=== PATIENT | female | born 1955 | race Caucasian/White ===

== ENCOUNTER 2016-11-06 23:13 | Emergency (ER) | payer MEDICAID ==
[~2016-11-06] VITALS: Ht 165.1 cm; Wt 98.4 kg
[~2016-11-06 23:13] MED LIST: DEXL60CA3 PO; LEVO500T20 PO; LISI40TA4 PO; PRED20TA PO; TRAM50TA92 PO
[2016-11-06 23:39] VITALS: BP 156/109; PULSE 63; RESP 18; TEMP 98.3; O2SAT 97
--- NOTE | 2016-11-06 23:46 | NUR ---
Pt triaged, pt on stable condition, VS WNL
--- NOTE | 2016-11-07 00:48 | NUR ---
Placed in room 07 . Placed on hall monitor, blood pressure machine and pulse oximeter. To gown for exam. Side rails up. Report given to LORNA Medrano.
[2016-11-07] MEDS ORDERED: KETOROLAC TROMETHAMINE 60 MG/2 ML VIAL IM ONE (01:45)
[2016-11-07 02:20] VITALS: BP 143/97; PULSE 66; RESP 16; TEMP 98.3; O2SAT 98
--- NOTE | 2016-11-07 02:20 | NUR ---
Patient given written and verbal discharge instructions and verbalizes understanding. ER MD Agarwal discussed with patient the results and treatment provided. Patient in stable condition. ID arm band removed. Rx of prednisone, erythromycin,atarax given. Patient educated on pain management and to follow up with PMD. Pain Scale 0/10. Opportunity for questions provided and answered.
== END 2016-11-07 02:20 | disposition home or self-care (01) ==
LOC: SED 23:13
DX: L03.113 Cellulitis of right upper limb (principal); R21 Rash and other nonspecific skin eruption; J45.909 Unspecified asthma, uncomplicated; I10 Essential (primary) hypertension; Z88.0 Allergy status to penicillin; Z88.2 Allergy status to sulfonamides; Z88.5 Allergy status to narcotic agent
CPT/HCPCS: 96372; 99283; J1885

== ENCOUNTER 2016-11-13 13:16 | Emergency (ER) | payer MEDICAID ==
[~2016-11-13] VITALS: Ht 165.1 cm; Wt 98.4 kg
[2016-11-13 13:16] VITALS: BP 161/94; PULSE 85; RESP 18; TEMP 98.3; O2SAT 97
--- NOTE | 2016-11-13 13:16 | NUR ---
Pt placed to ER bed 5. Pt c/o productive cough with yellow colored sputum and sore throat x 2 weeks. No SOB noted. Respirations even and non-labored.
--- NOTE | 2016-11-13 13:30 | NUR ---
Dr. Proctor at bedside to assess pt.
[2016-11-13] MEDS ORDERED: IPRATROPIUM/ALBUTEROL SULFATE 3 ML AMPUL.NEB INH ONE (13:45)
[2016-11-13] MEDS ORDERED: DEXAMETHASONE SOD PHOSPHATE 10 MG/ML VIAL IM ONE (13:45)
[2016-11-13] MEDS ORDERED: KETOROLAC TROMETHAMINE 60 MG/2 ML VIAL IM ONE (13:45)
[2016-11-13 15:10] VITALS: BP 155/90; PULSE 77; RESP 18; TEMP 97.3; O2SAT 95
--- NOTE | 2016-11-13 15:10 | NUR ---
Patient given written and verbal discharge instructions and verbalizes understanding. ER MD discussed with patient the results and treatment provided. Patient in stable condition. ID arm band removed. Rx of Doxycycline and Tessalon Perles given. Patient educated on pain management and to follow up with PMD. Pain Scale 0/10. Opportunity for questions provided and answered.
== END 2016-11-13 15:10 | disposition home or self-care (01) ==
LOC: SED 13:16
DX: J20.9 Acute bronchitis, unspecified (principal); J45.909 Unspecified asthma, uncomplicated; I10 Essential (primary) hypertension; Z88.0 Allergy status to penicillin; Z88.2 Allergy status to sulfonamides; Z88.5 Allergy status to narcotic agent
CPT/HCPCS: 71020; 94640; 96372; 99284; J1100; J1885

== ENCOUNTER 2018-04-07 11:53 | Inpatient (IN) | payer MEDICAID ==
[~2018-04-07] VITALS: Ht 162.6 cm; Wt 96.6 kg
[~2018-04-07 11:53] MED LIST changes: -DEXL60CA3 PO; +DEXL60CA4 PO; -LEVO500T20 PO; -PRED20TA PO
[2018-04-07 12:17] VITALS: BP_SYST 121
--- NOTE | 2018-04-07 12:28 | NUR ---
Pt placed in bed 6
--- NOTE | 2018-04-07 12:28 | NUR ---
Pt c/o left sided abdominal pain with nausea since this AM. Pt with hx of abdominal hernias. Denies dysuria.
--- NOTE | 2018-04-07 12:35 | NUR ---
ER at bedside examining patient.
--- NOTE | 2018-04-07 13:02 | NUR ---
# 20 gauge angiocath placed to LFA. Use of asceptic technique. Opsite placed over site. Blood return noted. Blood for lab drawn from site. Flushed with 10 cc of normal saline. No evidence of infiltration noted. Patient tolerated well.
--- NOTE | 2018-04-07 13:07 | NUR ---
Pt to CT via stretcher.
--- NOTE | 2018-04-07 13:07 | NUR ---
Off unit for CT via [facility]
[2018-04-07 13:26] LABS: BILIRUBIN,URINE 1+ (NEGATIVE); BLOOD, URINE NEGATIVE (NEGATIVE); CLARITY/URINE CLEAR (CLEAR); COLOR,URINE YELLOW (YELLOW); GLUCOSE,URINE NEGATIVE (NEGATIVE); KETONES,URINE NEGATIVE (NEGATIVE); LEUKOCYTE ESTERASE ,URINE TRACE (NEGATIVE); NITRITE, URINE NEGATIVE (NEGATIVE); PROTEIN URINE NEGATIVE (NEGATIVE); UROBILINOGEN,URINE 0.2 (0.2-1.0)
[2018-04-07 13:27] LABS: BASOPHILS % (AUTO) 0.6 % (0.0-2.0); EOSINOPHILS # (AUTO) 0.1 K/uL (0.0-0.4); EOSINOPHILS % (AUTO) 0.9 % (0.0-4.0); HEMATOCRIT 38.3 % (36-48); HEMOGLOBIN 12.9 g/dL (12.0-16.0); LYMPHOCYTES # (AUTO) 2.3 K/uL (1.0-5.5); LYMPHOCYTES % (AUTO) 40.9 % (20.5-51.5); MEAN CORPUSCULAR HEMOGLOBIN 31 pg (27-31); MEAN CORPUSCULAR HGB CONC 34 % (32-36); MEAN CORPUSCULAR VOLUME 91 fL (79.0-98.0); MONOCYTES # (AUTO) 0.5 K/uL (0.0-1.0); MONOCYTES % (AUTO) 8.9 % (1.7-9.3); NEUTROPHILS # (AUTO) 2.8 K/uL (1.8-7.7); NEUTROPHILS % (AUTO) 48.7 % (40.0-70.0); PLATELET COUNT (AUTO) 182 K/uL (130-430); RED BLOOD CELL COUNT(AUTO) 4.21 MIL/uL (4.2-6.2); RED CELL DISTRIBUTION WIDTH 13.4 % (9.0-15.0); WHITE BLOOD COUNT (AUTO) 5.7 K/uL (4.8-10.8)
[2018-04-07 13:30] LABS: CALCIUM 9.2 mg/dL (8.4-11.0); CREATININE 0.69 mg/dL (0.55-1.30); POTASSIUM 3.6 mmol/L (3.5-5.1)
[2018-04-07] MEDS ORDERED: DIPHENHYDRAMINE INJ 50 MG/ML VIAL IVP ONE (13:30)
[2018-04-07 13:35] LABS: ALBUMIN 3.4 g/dL (3.4-4.8); TOTAL BILIRUBIN 0.4 mg/dL (0.0-1.0)
[2018-04-07] MEDS ORDERED: CLINDAMYCIN PHOSPHATE 900 mg/50mL D5W IV ONE (13:35)
[2018-04-07] MEDS ORDERED: BUPIVACAINE LIPOSOME/PF 266 MG/20 ML VIAL INFIL ONE (13:35)
[2018-04-07] MEDS ORDERED: KETOROLAC TROMETHAMINE 30 MG VIAL IVP ONE (13:35)
[2018-04-07] MEDS ORDERED: fentaNYL CITRATE/PF 100 MCG/2 ML AMP IVP ONE ×2 (13:35→15:45)
[2018-04-07] MEDS ORDERED: ROCURONIUM BROMIDE 10 MG/ML (ZEMURON) IV ONE (13:35)
[2018-04-07] MEDS ORDERED: NEOSTIGMINE METHYLSULFATE 1 MG/ML, 10 ML VIAL IVP ONE (13:35)
[2018-04-07] MEDS ORDERED: LR 1,000 ML IV.SOLN IV ONE (13:35)
[2018-04-07] MEDS ORDERED: SEVOFLURANE 15 MIN GAS INH ONE (13:35)
[2018-04-07] MEDS ORDERED: MIDAZOLAM HCL 5 MG/5 ML VIAL IVP ONE (13:35)
[2018-04-07] MEDS ORDERED: PROPOFOL 200MG/ 20ML VIAL (DIPRIVAN) IV ONE (13:35)
[2018-04-07] MEDS ORDERED: GLYCOPYRROLATE 0.2 MG/ML VIAL IJ ONE (13:35)
[2018-04-07 13:51] LABS: BACTERIA,URINE FEW /HPF (None Seen); MUCUS,URINE 1+ /LPF (None Seen); RBC,URINE 0-3 /HPF (0-3)
--- NOTE | 2018-04-07 14:00 | NUR ---
Pt resting with eyes closed. Family members at bedside.
[2018-04-07] MEDS ORDERED: HYDROmorphone 2 MG/ML VIAL IVP ONE (15:15)
--- NOTE | 2018-04-07 15:40 | NUR ---
Patient will be admitted to care of Dr. Summers. Admitted to Tele unit. Will go to room 133A. Belongings list completed. Summary report printed. Report will be given at bedside.
[2018-04-07] MEDS ORDERED: HYDROmorphone 2 MG/ML VIAL ONE (15:41)
--- NOTE | 2018-04-07 15:51 | NUR ---
Fentanyl 25 mcg given IVP prior to taking pt to Tele unit.
--- NOTE | 2018-04-07 15:59 | NUR ---
ADMISSION NOTE Received patient from ER via gurney. Patient admitted with diagnosis of acute abdomen. Patient is awake, alert, oriented X 4. Patient oriented to hospital room, call light, toileting, pain management and safety-teach back done. Patient informed that Linda will be her nurse and that their room number is 133a. Personal belongings checked and Belongings List documented. Call light within reach.
[2018-04-07 16:07] VITALS: BP_SYST 109
[2018-04-07] MEDS ORDERED: PRED10TA PO (16:40)
[2018-04-07] MEDS ORDERED: HCT25 PO (16:40)
[2018-04-07] MEDS ORDERED: LISI-600 PO (16:40)
[2018-04-07] MEDS: D5/0.45 NS 1,000 ML IV SCH (16:53)
[2018-04-07 17:00] VITALS: BP_SYST 109
[2018-04-07] MEDS ORDERED: HYDROmorphone 2 MG/ML VIAL IVP PRN (17:00)
[2018-04-07] MEDS ORDERED: LORazepam 2 MG/ML VIAL IVP PRN (17:00)
[2018-04-07] MEDS ORDERED: HYDROmorphone 1 MG INJ. 1 MG/ML AMPUL IM PRN (17:00)
--- NOTE | 2018-04-07 17:00 | NUR ---
Opening Note Report received from Amber ROTHMAN. Patient is currently having abdominal discomfort. Dr. Summers called for orders. Currently waiting for a call back.
--- NOTE | 2018-04-07 17:20 | NUR ---
Spoke with MD Spoke with Dr. Summers. Pain medication orders received. Patient stated that she wants to hold off on pain medication for know. Educated the patient on pain management. Will continue to monitor.
[2018-04-07] MEDS ORDERED: KETOROLAC TROMETHAMINE 30 MG VIAL ONE (17:27)
--- NOTE | 2018-04-07 18:33 | NUR ---
CONSULTATION PAGED/CALLED Reason for Consultation: ABDOMINAL PAIN Person Who was Notified: TAMARA Consulting Physician: DR. ENRIQUEZ Ordering Physician: NERY IVY
--- NOTE | 2018-04-07 18:54 | NUR ---
Closing Note Patient is currently resting in bed. Current abdominal pain is 4/10. Patient does not want pain medication at the moment. Spoke with Dr. Castano who stated that he will see the patient. Will endorse.
--- NOTE | 2018-04-07 19:54 | NUR ---
Initial note: Received handoff report from dayshift RN. Patient is awake in bed; family members present at bedside. Alert and oriented x4 with no signs or symptoms of acute distress displayed. Breathing even and unlabored. IV fluids infusing well to patient's IV 22 gauge to right hand. Complains of pain 4/10 to abdominal area, but refuses pain medications at this time. Denies nausea. NPO status in place. Call light is with patient, safety and fall precautions in place. Encouraged patient to use call light for any needs, patient verbalized understanding. Will continue with plan of care
[2018-04-07 20:55] VITALS: BP_SYST 103
--- NOTE | 2018-04-07 22:05 | NUR ---
Rounds: Patient is resting in bed with eyes closed. Respirations even and unlabored on room air. No signs or symptoms of acute distress noted. Call light is with patient, safety and fall precautions in place. Will continue monitoring.
[2018-04-08] VITALS (7 sets, daily range): BP systolic 90–109
--- NOTE | 2018-04-08 00:14 | NUR ---
Rounds: Patient is in bed, does not show any signs or symptoms of acute distress noted. Complains of abdominal pain, but refuses medication despite education regarding indications and side effects. IV fluids remain infusing well. Call light is with patient, safety and fall precautions in place. Will continue monitoring.
[2018-04-08] MEDS: D5/0.45 NS 1,000 ML IV SCH ×3 (01:30→21:30)
--- NOTE | 2018-04-08 02:19 | NUR ---
Rounds: Patient is asleep, does not show any signs or symptoms of acute distress. Breathing is even and unlabored while on room air. Call light is with patient. Safety and fall precautions remain in place. Will continue monitoring.
--- NOTE | 2018-04-08 04:30 | NUR ---
Rounds: Patient is awake, no signs or symptoms of acute distress noted. Complains of pain 4/10, but refuses pain medication when offered. IV fluids infusing well to IV site. Call light is with patient. Safety and fall precautions in place. Will continue monitoring.
--- NOTE | 2018-04-08 06:17 | NUR ---
Closing note: Patient is asleep in bed, no signs or symptoms of acute distress noted. IV infusing well to IV site. All needs met and attended to. Call light is with patient, safety and fall precautions in place. Will endorse care to dayshift RN.
[2018-04-08 06:58] LABS: BASOPHILS % (AUTO) 0.9 % (0.0-2.0); EOSINOPHILS # (AUTO) 0.1 K/uL (0.0-0.4); EOSINOPHILS % (AUTO) 2.3 % (0.0-4.0); HEMATOCRIT 37.7 % (36-48); HEMOGLOBIN 12.5 g/dL (12.0-16.0); LYMPHOCYTES # (AUTO) 2.2 K/uL (1.0-5.5); LYMPHOCYTES % (AUTO) 51.4 % (20.5-51.5); MEAN CORPUSCULAR HEMOGLOBIN 30 pg (27-31); MEAN CORPUSCULAR HGB CONC 33 % (32-36); MEAN CORPUSCULAR VOLUME 92 fL (79.0-98.0); MONOCYTES # (AUTO) 0.4 K/uL (0.0-1.0); MONOCYTES % (AUTO) 8.9 % (1.7-9.3); NEUTROPHILS # (AUTO) 1.6 K/uL (1.8-7.7); NEUTROPHILS % (AUTO) 36.5 % (40.0-70.0); PLATELET COUNT (AUTO) 180 K/uL (130-430); RED CELL DISTRIBUTION WIDTH 13.4 % (9.0-15.0); WHITE BLOOD COUNT (AUTO) 4.3 K/uL (4.8-10.8)
[2018-04-08 08:08] LABS: CALCIUM 8.5 mg/dL (8.4-11.0); CREATININE 0.69 mg/dL (0.55-1.30); POTASSIUM 3.5 mmol/L (3.5-5.1)
--- NOTE | 2018-04-08 08:22 | NUR ---
OPENING NOTE REPORT IS RECEIVED FROM SENIOR ELECTRICAL DESIGN ENGINEER NURSE AND CARE IS ENDORSED TO MYSELF. PT IS RECEIVED AWAKE, ALERT, AND ORIENTED X4, IRISH SPEAKING. NO SIGNS OR SYMPTOMS OF DISTRESS OR SOB NOTED.PT COMPLAINS OF MINOR ABDOMINAL PAIN OF 4 OUT OF 6. MORNING VS ARE STABLE. WHITE BOARD IS UPDATED AND PLAN OF CARE IS UPDATED. PT IS NPO. CURRENT NEEDS ARE MET. BED IS AT LOWEST POSITION, CALL LIGHT WITHIN REACH, THREE SIDE RAILS UP, BED ALARM IS ON. WILL CONTINUE TO MONITOR.
[2018-04-08] MEDS ORDERED: GASTROGRAFIN 120 ML ONE (09:03)
--- NOTE | 2018-04-08 10:05 | NUR ---
ROUNDS PT WAS TAKEN TO RADIOLOGY TO SB SERIES. WILL MONITOR UPON RETURN.
--- NOTE | 2018-04-08 10:08 | NUR ---
CONSULTATION PAGED/CALLED Reason for Consultation: BRADYCARDIA Person Who was Notified: SPOKE WITH HARMEET FROM Jacqui RAMIREZ [employer] Consulting Physician: IS FLIGHT MECHANIC FOR Jacqui IVY Finished Carpet Inspector Specialty: CARDIO Ordering Physician: NERY IVY
--- NOTE | 2018-04-08 12:55 | NUR ---
ROUNDS PT IS AWAKE AND ALERT. NO SIGNS OR SYMPTOMS OF DISTRESS OR SOB NOTED. PT IS HAVING 2D ECHO AT BEDSIDE WITH EJECTION FRACTION OF 71%. CURRENT NEEDS ARE MET. BED IS AT LOWEST POSITION, CALL LIGHT WITHIN REACH, THREE SIDE RAILS UP, BED ALARM IS ON. WILL CONTINUE TO MONITOR.
--- NOTE | 2018-04-08 14:51 | NUR ---
ROUNDS PT IS AWAKE AND ALERT, WATCHING TV. NO SIGNS OR SYMPTOMS OF DISTRESS OR SOB NOTED. PT DENIES ANY PAIN. DAUGHTER IS AT BEDSIDE. CURRENT NEEDS ARE MET. BED IS AT LOWEST POSITION, CALL LIGHT WITHIN REACH, THREE SIDE RAILS UP, BED ALARM IS ON. WILL CONTINUE TO MONITOR.
--- NOTE | 2018-04-08 16:17 | NUR ---
ROUNDS PT IS AWAKE AND ALERT. NO SIGNS OR SYMPTOMS OF DISTRESS OR SOB NOTED. PT DENIES ANY PAIN. CURRENT NEEDS ARE MET. BED IS AT LOWEST POSITION, CALL LIGHT WITHIN REACH, THREE SIDE RAILS UP, BED ALARM IS ON. WILL CONTINUE TO MONITOR.
--- NOTE | 2018-04-08 19:00 | NUR ---
change of shift.pt.presents language barrier;kinyarwanda;primary/spanish;fluent.pt.capable to articulate/verbalizes requests pt.presents possible surgery: i am:04/09/18.pt.diet status:clear liquids:@midnight converts to nothing by mouth. pt.apprised of the diet status.change.and indication.iv fluids infusing call light w/in the pt's reach.
--- NOTE | 2018-04-08 19:55 | NUR ---
pt.assessed.v/s assessed:b/p values note hypotensive.pt.has explained of recent htn changes:is followed as out/pt w/cardiology.her securities consultant has noted cardio changes.is f/u.i have apprised the pt.that snacks are available:clear liquid items.pt.has stated she is fine:no requests@this hour.i have demonstrated to the pt.the room telephone utilization.i have placed the room telephone w/the call light w/in the pt's reach.iv fluids infusing.pt.capable to reposition self.pt.has conveyed the info;romansh. Addendum: 04/08/18 at 2121 by Reyes Lui RN i have up-dated the white board.i inquire if the pt.had received the flu vaccine.the pt.stated she had per her pmd.
--- NOTE | 2018-04-08 21:00 | NUR ---
no 2100p medications due.i inquired if the pt.required any items.pt.stated no she is fine.
--- NOTE | 2018-04-08 22:00 | NUR ---
pt.assessed.pt.presents quiescent affect;calm,somnolent.pt.capable to reposition self.general status stable. respiratory status stable.iv fluids infusing.call light/telephone w/in the pt's reach.
--- NOTE | 2018-04-08 23:55 | NUR ---
pt.assessed.v/s assessed.b/p noted hypotensive status:medium range for pt.@this hospital stay. pt.is asymptomatic.pt.capable to reposition self.iv fluids infusing.i have re-iterated to the pt.that the diet status converted to npo:pt.has understood:possible surgery in am:04/09/18.no requests@this hour. no c/o pain/nausea.call light/telephone w/in the pt's reach.
[2018-04-09 00:28] VITALS: BP_SYST 98
--- NOTE | 2018-04-09 02:00 | NUR ---
pt.assessed.pt.presents quiescent affect;calm,somnolent.general status stable.respiratory status stable. iv fluids infusing.call light/telephone w/in the pt's reach.
--- NOTE | 2018-04-09 04:00 | NUR ---
pt.assessed.pt.presents quiescent affect;pt.awakened:assisting 133-b to restroom.i inquired if the pt.presents requests:pain,nausea.pt.stated;no, she is comfortable.i have placed the red-cone;indication npo diet status:i have apprised the pt.of the red-cone representation.general status stable.respiratory status stable. iv fluids infusing.call light/telephone w/in the pt's reach.
[2018-04-09] MEDS: D5/0.45 NS 1,000 ML IV SCH ×2 (05:05→17:28)
[2018-04-09 06:26] LABS: BASOPHILS % (AUTO) 0.6 % (0.0-2.0); EOSINOPHILS # (AUTO) 0.1 K/uL (0.0-0.4); EOSINOPHILS % (AUTO) 3.1 % (0.0-4.0); HEMATOCRIT 36.2 % (36-48); HEMOGLOBIN 11.9 g/dL (12.0-16.0); LYMPHOCYTES # (AUTO) 1.3 K/uL (1.0-5.5); LYMPHOCYTES % (AUTO) 28.9 % (20.5-51.5); MEAN CORPUSCULAR HEMOGLOBIN 30 pg (27-31); MEAN CORPUSCULAR HGB CONC 33 % (32-36); MEAN CORPUSCULAR VOLUME 92 fL (79.0-98.0); MONOCYTES # (AUTO) 0.3 K/uL (0.0-1.0); MONOCYTES % (AUTO) 7.7 % (1.7-9.3); NEUTROPHILS # (AUTO) 2.8 K/uL (1.8-7.7); NEUTROPHILS % (AUTO) 59.7 % (40.0-70.0); PLATELET COUNT (AUTO) 169 K/uL (130-430); RED BLOOD CELL COUNT(AUTO) 3.93 MIL/uL (4.2-6.2); RED CELL DISTRIBUTION WIDTH 13.5 % (9.0-15.0); WHITE BLOOD COUNT (AUTO) 4.5 K/uL (4.8-10.8)
--- NOTE | 2018-04-09 06:50 | NUR ---
pt.assessed.pt.present stable status.pt.had requested a shower:possible surgery.i have provided the towels/other items. i have supervised the pt's return to bed.pt.states she is fine.awaiting 's decision for surgery.pt.is npo:post midnight.no c/o pain,nausea.general status stable.respiratory status stable,.call light/telephone w/in the pt's reach.
[2018-04-09 07:42] LABS: CALCIUM 8.1 mg/dL (8.4-11.0); CREATININE 0.66 mg/dL (0.55-1.30); POTASSIUM 3.9 mmol/L (3.5-5.1)
--- NOTE | 2018-04-09 07:44 | NUR ---
OPENING NOTE: MORNING REPORT WAS TAKEN FROM PRINTER MAINTAINER NURSE. PATIENT IS LAYING DOWN IN BED WATCHING TV. PATIENT IS ALERT AND ORIENTED X4. PATIENT SAID SHE HAS A LITTLE BIT OF SHORTNESS OF BREATH. PATIENT IS ON ROOM AIR. PATIENT NOT COMPLAINING OF VOMITING OR NAUSEA. PATIENT SAID SHE FEELS A LITTLE GASSY. PATIENT SAID SHE HAS A LITTLE BIT ON PAIN BUT DOESNT WANT ANYTHING FOR IT. PATIENT'S LEGS ARE SLIGHTLY SWOLLEN BUT NOT PITTING. PATIENT'S IV IS INFUSING FLUIDS. EDUCATED PATIENT ON IMPORTANCE OF BED ALARM BUT REFUSED TO HAVE IT ON. BED IN LOWEST POSITION WITH CALL LIGHT IN REACH. WILL CONTINUE TO MONITOR.
[2018-04-09 08:04] VITALS: BP_SYST 124
--- NOTE | 2018-04-09 08:40 | NUR ---
: DR. ENRIQUEZ CAME IN AND TALKED TO PATIENT. WENT OVER SURGERY WITH PATIENT AND PATIENT'S DAUGHTER OVER PHONE. PATIENT WANTS TO DO SURGERY. SURGERY AT 1300. WILL GET PAPERWORK DONE.
--- NOTE | 2018-04-09 09:23 | NUR ---
NOTE: CHECKED IN ON PATIENT TO SEE IF SHE NEEDED ANYTHING. PATIENT SAID SHE WAS NERVOUS FOR SURGERY. PATIENT STARTED CRYING. HELPED COMFORT PATIENT AND PUT MIND AT EASE. WILL CONTINUE TO MONITOR.
[2018-04-09 11:39] VITALS: BP_SYST 112
--- NOTE | 2018-04-09 11:47 | NUR ---
NOTE: CHECKED IN ON PATIENT. PATIENT DOING BETTER. PATIENT JUST COLD. WILL CALL TO TURN DOWN AIR. FLUIDS STILL INFUSING. WILL CONTINUE TO MONITOR.
--- NOTE | 2018-04-09 11:57 | NUR ---
Dietitian Recommendations *Recommend continuing NPO per MD orders. *Recommend advance diet when medically appropriate (clear liquid diet). Please see Nutritional Assessment for details. FER, RD
--- NOTE | 2018-04-09 13:35 | NUR ---
PATIENT LEFT TO SURGERY. FAMILY FOLLOWED.
[2018-04-09] MEDS ORDERED: fentaNYL CITRATE/PF 100 MCG/2 ML AMP IVP PRN (14:15)
[2018-04-09] MEDS ORDERED: ONDANSETRON HCL 4 MG/2 ML VIAL IVP PRN (14:15)
[2018-04-09] MEDS ORDERED: fentaNYL CITRATE/PF 100 MCG/2 ML AMP ONE ×2 (15:33→15:46)
[2018-04-09] MEDS: fentaNYL CITRATE/PF 100 MCG/2 ML AMP IVP PRN ×2 (15:33→15:44)
[2018-04-09] MEDS ORDERED: ONDANSETRON HCL 4 MG/2 ML VIAL ONE (16:19)
--- NOTE | 2018-04-09 16:45 | NUR ---
PATIENT BACK FROM OR: PATIENT IN BED MOANING, AND NAUSEAS. DRESSING IS INTACT AND TENISHA DRAIN ON SUCTION. PATIENT ON 3L NC BECAUSE PATIENT'S O2 DEPRESSES FROM PAIN MEDICATION. ENCOURAGED PATIENT TO REST AND RELAX. PATIENT'S VITALS WERE TAKEN. PATIENT HAS SCD'S ON. INCENTIVE SPIROMETER AT BEDSIDE. FAMILY AT BEDSIDE. WILL CONTINUE TO MONITOR.
[2018-04-09 16:50] VITALS: BP_SYST 112
[2018-04-09] MEDS: KETOROLAC TROMETHAMINE 30 MG VIAL IVP PRN (17:25)
--- NOTE | 2018-04-09 17:44 | NUR ---
PATIENT COMPLAINING OF PAIN. GAVE PAIN MEDICATION. HUNG NEW BAG OF FLUIDS. WILL CONTINUE TO MONITOR. FAMILY AT BEDSIDE.
--- NOTE | 2018-04-09 18:24 | NUR ---
CLOSING NOTE: PATIENT LAYING DOWN IN BED. PATIENT'S PAIN DOING BETTER. PATIENT NOT COMPLAINING OF SHORTNESS OF BREATH. PATIENT ON 2L NC. PATIENT HAS FLUIDS INFUSING. DRESSING DRY AND INTACT. TENISHA HAD 20 ML OF SANGUINEOUS BLOOD. TENISHA DRAIN SUCTIONED. SCD'S ARE ON. INCENTIVE SPIROMETER AT BEDSIDE AND ENCOURAGED PATIENT TO USE. GAVE PATIENT WARM BLANKET. BED ALARM IS ON AND CALL LIGHT IS IN REACH. WILL CONTINUE TO MONITOR AND GIVE REPORT TO STATISTICS INTERN NURSE.
--- NOTE | 2018-04-09 20:52 | NUR ---
PHONED PAGED DR ENRIQUEZ , FOR DIET CLARIFICATION PO .
[2018-04-09 20:55] VITALS: BP_SYST 124
--- NOTE | 2018-04-09 21:08 | NUR ---
PAGED I PAGED DR. ROSS Martinez @ [phone] I SPOKE WITH POP COULTER
--- NOTE | 2018-04-09 21:18 | NUR ---
PAGED I PAGED DR. ENRIQUEZ @ [phone] I SPOKE WITH LIZZY ENRIQUEZ CALLED BACK @ 2120
--- NOTE | 2018-04-09 22:29 | NUR ---
NEW ORDERS DR ENRIQUEZ START PATIENT ON CLEAR LIQUID DIET PO .
--- NOTE | 2018-04-09 22:44 | NUR ---
PATIENT MAY HAVE ICE CHIPS PO TOLERATED .
--- NOTE | 2018-04-09 22:45 | NUR ---
MIDLINE LOWER ABDOMEN DRESSING DSD INTACT TENISHA DRAIN CLEAN & INTACT NO BLEEDING NOTED / .
--- NOTE | 2018-04-10 00:28 | NUR ---
Reposition & pull patient up in bed off loading with pillows turning on schedule activity tolerated skin dry warm .
[2018-04-10 01:46] VITALS: BP_SYST 127
--- NOTE | 2018-04-10 03:44 | NUR ---
Thaddeus Celis TENISHA drain intact to midline abdomen site clean DSD no bleeding noted skin dry warm patient is verbally responsive / .
[2018-04-10] MEDS: D5/0.45 NS 1,000 ML IV SCH ×3 (03:47→23:33)
--- NOTE | 2018-04-10 05:27 | NUR ---
Patient resting HOB elevated verbally responsive denies does not want pain medication , off loading with pillows comfort measures effective call bae with patient .
[2018-04-10 06:45] LABS: CALCIUM 7.8 mg/dL (8.4-11.0); CREATININE 0.56 mg/dL (0.55-1.30)
[2018-04-10 07:11] LABS: BASOPHILS % (AUTO) 0.2 % (0.0-2.0); EOSINOPHILS % (AUTO) 0.4 % (0.0-4.0); HEMATOCRIT 34.8 % (36-48); HEMOGLOBIN 11.6 g/dL (12.0-16.0); LYMPHOCYTES % (AUTO) 16.7 % (20.5-51.5); MEAN CORPUSCULAR HEMOGLOBIN 31 pg (27-31); MEAN CORPUSCULAR HGB CONC 33 % (32-36); MEAN CORPUSCULAR VOLUME 93 fL (79.0-98.0); MONOCYTES # (AUTO) 0.5 K/uL (0.0-1.0); MONOCYTES % (AUTO) 7.9 % (1.7-9.3); NEUTROPHILS # (AUTO) 4.3 K/uL (1.8-7.7); NEUTROPHILS % (AUTO) 74.8 % (40.0-70.0); PLATELET COUNT (AUTO) 151 K/uL (130-430); RED BLOOD CELL COUNT(AUTO) 3.74 MIL/uL (4.2-6.2); RED CELL DISTRIBUTION WIDTH 13.3 % (9.0-15.0); WHITE BLOOD COUNT (AUTO) 5.8 K/uL (4.8-10.8)
[2018-04-10] MEDS: ONDANSETRON HCL 4 MG/2 ML VIAL IVP PRN (07:50)
[2018-04-10 07:52] VITALS: BP_SYST 124
--- NOTE | 2018-04-10 09:45 | NUR ---
GI Spoke to DR. Castano regarding adverse effect of Dilaudid nausea, vomiting and dizziness, medication discontinued , with n.o. carried out
[2018-04-10] MEDS ORDERED: PANTOPRAZOLE SODIUM 40 MG/VIAL (PROTONIX) IVP ONE (10:00)
[2018-04-10] MEDS ORDERED: PANTOPRAZOLE SODIUM 40 MG/VIAL (PROTONIX) ONE (10:05)
[2018-04-10 12:00] VITALS: BP_SYST 129
[2018-04-10] MEDS: KETOROLAC TROMETHAMINE 30 MG VIAL IVP PRN ×2 (12:04→19:09)
--- NOTE | 2018-04-10 13:10 | NUR ---
GI nausea and vomiting is much better tolerates clear liquids small amount, Dr. ENRIQUEZ is informed regarding vomitus gastric juices light black , oral care given and ice chips.
--- NOTE | 2018-04-10 14:00 | NUR ---
/MOBILITY Out of bed to bedside commode with assist for 15 minutes due to mild dizziness tolerates well able to urinate with out dysuria perineal care given, back to bed , patient using incentive spirometer reaching 750 ml , call light within reach , needs attended.
--- NOTE | 2018-04-10 15:00 | NUR ---
Mobility Walked [facility] using FWW in the hallway steady gait mild dizziness and vomited after walking , back to bed oral care given mylanta po given ,dressing and eva drainage intact minimal drainage kept on negative pressure , after 15 minutes patient able to sleep .will monitor
[2018-04-10] MEDS: MAG-AL HYDROX/SIMETH 30 ML UDC PO PRN ×3 (15:18→23:32)
[2018-04-10 16:00] VITALS: BP_SYST 126
--- NOTE | 2018-04-10 18:45 | NUR ---
CLOSING NOTES Abdominal dressing dry intact , eva drainage minmal drainage of red 10 ml, positive bowel sound , abler to get out of bed with assist to bedside coomode with mild dizziness steady gait ,tolerates well , clear liquid /ice chips served tolerates well , needs attended.
--- NOTE | 2018-04-10 19:00 | NUR ---
OPENING NOTES Late entry due to patient care. Bedside report received from day shift nurse. Patient received lying in bed, AOx4, watching tv, patient's niece preset at bedside. Patient complains of 6/10 pain at this time, will administered PRN medication. Breathing is even and unlabored. HOB raised. No SOB. SCDs attached. Abdominal dressing intact, clean, and dry, no signs of drainage or active bleeding. Call light with patient, instructed to call for any assistance, patient verbalized understanding. Bed alarm on. Will continue to monitor.
[2018-04-10 20:00] VITALS: BP_SYST 128
[2018-04-10] MEDS: PANTOPRAZOLE SODIUM 40 MG/VIAL (PROTONIX) IVP SCH (20:13)
--- NOTE | 2018-04-10 21:00 | NUR ---
ROUNDS Patient in bed resting at this time. Patient's niece is present at bedside. Patient shows no signs of discomfort, patient states that she feels comfortable at this time. IVF infusing well. No signs of active bleeding noted. SCDs attached and operating. Call light with patient, bed alarm on. Will continue to monitor.
--- NOTE | 2018-04-10 23:00 | NUR ---
HEARTBURN/ROUNDS Patient complaining of heartburn at this time. Mylanta to be administered per PRN order. Patient in bed resting. Chest rise and fall even bilaterally. IVF infusing well, IV site patent, no signs of infiltration or infection. SCDs attached and operating. No signs of active bleeding noted. Call light with patient. Bed alarm on. Will continue to monitor.
[2018-04-11] VITALS: BP_SYST 104
--- NOTE | 2018-04-11 01:00 | NUR ---
ROUNDS Patient sleeping at this time. No signs of discomfort noted. Chest rise and fall even bilaterally. Call light within reach. Bed alarm on. All needs met at this time. Will continue to monitor.
--- NOTE | 2018-04-11 03:00 | NUR ---
ROUNDS Patient sleeping at this time. No s/s of acute distress noted. Breathing even and unlabored. Call light with patient. Bed alarm on. Will continue to monitor.
--- NOTE | 2018-04-11 05:00 | NUR ---
ASSISTED TO BEDSIDE COMMODE Patient assisted to bedside commode to void. Patient tolerated activity well. Patient complained of mild abdominal pain. No SOB. Call light with patient. All needs met at this time. Bed alarm on. Will continue to monitor.
[2018-04-11] MEDS: MAG-AL HYDROX/SIMETH 30 ML UDC PO PRN ×4 (05:07→22:52)
[2018-04-11] MEDS: KETOROLAC TROMETHAMINE 30 MG VIAL IVP PRN ×3 (05:07→18:40)
--- NOTE | 2018-04-11 07:00 | NUR ---
CLOSING NOTES Patient in bed resting at this time. No s/s of acute distress noted. Breathing is even and unlabored. IVF infusing well, IV site shows no signs of infiltration or infection, patent. Abdominal dressing intact, clean, and dry. TENISHA drain intact, suctioning well. SCDs attached and operating. HOB raised. All of patient's needs met throughout shift. Fall and safety precautions maintained throughout shift. Will continue to monitor until patient care is endorsed to oncoming day shift nurse.
[2018-04-11 07:19] LABS: BASOPHILS % (AUTO) 0.6 % (0.0-2.0); EOSINOPHILS # (AUTO) 0.1 K/uL (0.0-0.4); EOSINOPHILS % (AUTO) 1.3 % (0.0-4.0); HEMATOCRIT 32.7 % (36-48); HEMOGLOBIN 10.7 g/dL (12.0-16.0); LYMPHOCYTES # (AUTO) 1.7 K/uL (1.0-5.5); LYMPHOCYTES % (AUTO) 27.7 % (20.5-51.5); MEAN CORPUSCULAR HEMOGLOBIN 31 pg (27-31); MEAN CORPUSCULAR HGB CONC 33 % (32-36); MEAN CORPUSCULAR VOLUME 94 fL (79.0-98.0); MONOCYTES # (AUTO) 0.7 K/uL (0.0-1.0); MONOCYTES % (AUTO) 11.1 % (1.7-9.3); NEUTROPHILS # (AUTO) 3.5 K/uL (1.8-7.7); NEUTROPHILS % (AUTO) 59.3 % (40.0-70.0); PLATELET COUNT (AUTO) 147 K/uL (130-430); RED BLOOD CELL COUNT(AUTO) 3.47 MIL/uL (4.2-6.2); RED CELL DISTRIBUTION WIDTH 13.7 % (9.0-15.0)
[2018-04-11 07:28] LABS: ALBUMIN 2.3 g/dL (3.4-4.8); CALCIUM 7.5 mg/dL (8.4-11.0); CREATININE 0.63 mg/dL (0.55-1.30); POTASSIUM 3.9 mmol/L (3.5-5.1); TOTAL BILIRUBIN 0.3 mg/dL (0.0-1.0)
--- NOTE | 2018-04-11 07:30 | NUR ---
AM ROUNDS RECEIVED PT UP IN BED. AWAKE, ALERT, ORIENTED X4. BREATHING IS EVEN AND UNLABORED ON RA. FULL ASSESSMENT COMPLETED. VSS. PAIN TO ABDOMEN IS MANAGED AT THIS TIME. RD OF CALL LIGHT NOTED. ENCOURAGED PT TO CALL ME WITH ANY NEEDS.
[2018-04-11 08:00] VITALS: BP_SYST 11
[2018-04-11] MEDS: PANTOPRAZOLE SODIUM 40 MG/VIAL (PROTONIX) IVP SCH ×2 (09:26→20:11)
[2018-04-11] MEDS: D5/0.45 NS 1,000 ML IV SCH ×2 (09:29→19:37)
[2018-04-11] MEDS: ONDANSETRON HCL 4 MG/2 ML VIAL IVP PRN (09:56)
--- NOTE | 2018-04-11 12:30 | NUR ---
RN ROUNDS ASSISTED PT UP TO BSC. PUT BACK TO BED. REPOSITIONED AND SUPPORTED WITH PILLOWS
[2018-04-11 12:35] VITALS: BP_SYST 109
--- NOTE | 2018-04-11 14:40 | NUR ---
RN ROUNDS PT RESTING IN BED. EYES CLOSED CHEST RISING AND FALLING. NO NONVERBAL INDICATORS OF PAIN NOTED.
[2018-04-11 16:15] VITALS: BP_SYST 100
--- NOTE | 2018-04-11 18:32 | NUR ---
CLOSING NOTE PT RESTING IN BED. ALL NEEDS MET. HOURLY ROUNDS OBSERVED THROUGHOUT SHIFT. WILL ENDORSE REPORT TO NOC SHIFT NURSE
--- NOTE | 2018-04-11 19:08 | NUR ---
OPENING NOTES Late entry due to patient care. Bedside report received from dayshift nurse. Patient received lying in bed, AOx4, complaining of 3/10 abdominal pain. Nasal canula attached properly, on 2L of oxygen, breathing even and unlabored. IVF infusing well. SCDs attached and operating. Abdominal dressing intact, clean and dry, no signs of bleeding or drainage noted. TENISHA drain intact with scant output. Call light with patient, instructed to call for any assistance, patient verbalized understanding. Bed alarm on. Bed is locked and at lowest position. Will continue to monitor.
--- NOTE | 2018-04-11 19:45 | NUR ---
NEW IV SITE NEW IV site at left wrist, 22 gauge, patent, no signs of infiltration. Previous IV site DC'ed due to infiltration, catheter fully intact, no active bleeding noted. Patient tolerated procedure well, no s/s of acute distress noted. Call light with patient. Bed alarm on. Will continue to monitor.
[2018-04-11 20:00] VITALS: BP_SYST 112
--- NOTE | 2018-04-11 21:00 | NUR ---
EDUCATION: IS/ASSISTED TO BEDSIDE COMMODE/ENCOURAGE AMBULATION Patient assisted to bedside commode to void at this time. Patient encouraged to ambulate, patient able to walk 10 feet. No s/s of acute distress noted. Breathing even and unlabored, nasal canula attached properly, on 2L of oxygen. Patient educated on IS, patient was able to demonstrate proper use, encouraged to repeat 10 times every hour when awake, patient verbalized understanding. All needs met at this time. Call light with patient. Bed alarm on. Will continue to monitor.
--- NOTE | 2018-04-11 23:00 | NUR ---
ROUNDS Patient in bed resting, watching TV. No signs of discomfort noted. Patient denies pain at this time, stated that she felt comfortable. Chest rise and fall even bilaterally. Call light with patient. Bed alarm on. Will continue to monitor.
[2018-04-12] MEDS: KETOROLAC TROMETHAMINE 30 MG VIAL IVP PRN ×3 (00:21→16:07)
--- NOTE | 2018-04-12 00:21 | NUR ---
PAIN Patient complaining of 6/10 abdominal pain. Will administer Toradol per PRN orders. Will continue to monitor and reassess.
[2018-04-12 00:35] VITALS: BP_SYST 117
--- NOTE | 2018-04-12 02:20 | NUR ---
ROUNDS Patient in bed sleeping comfortably. No s/s of acute distress noted. Breathing is even and unlabored. IVF infusing well. Call light with patient. Bed alarm remains on. Will continue to monitor.
--- NOTE | 2018-04-12 04:07 | NUR ---
ROUNDS Patient sleeping at this time. No signs of discomfort noted. No SOB. Nasal canula attached properly, on 2L of oxygen. IVF infusing well. Call light with patient. Bed alarm on. Will continue to monitor.
--- NOTE | 2018-04-12 06:00 | NUR ---
PAIN Patient complained of 6/10 abdominal pain at this time. Will administer PRN medication. Will continue to monitor and reassess. Call light with patient. Bed alarm on.
[2018-04-12] MEDS: D5/0.45 NS 1,000 ML IV SCH ×2 (06:07→16:09)
[2018-04-12] MEDS: MAG-AL HYDROX/SIMETH 30 ML UDC PO PRN ×2 (06:07→14:26)
[2018-04-12 06:39] LABS: BASOPHILS % (AUTO) 0.6 % (0.0-2.0); EOSINOPHILS # (AUTO) 0.1 K/uL (0.0-0.4); EOSINOPHILS % (AUTO) 2.7 % (0.0-4.0); HEMATOCRIT 31.9 % (36-48); HEMOGLOBIN 10.6 g/dL (12.0-16.0); LYMPHOCYTES # (AUTO) 1.4 K/uL (1.0-5.5); LYMPHOCYTES % (AUTO) 32.2 % (20.5-51.5); MEAN CORPUSCULAR HEMOGLOBIN 31 pg (27-31); MEAN CORPUSCULAR HGB CONC 33 % (32-36); MEAN CORPUSCULAR VOLUME 93 fL (79.0-98.0); MONOCYTES # (AUTO) 0.5 K/uL (0.0-1.0); MONOCYTES % (AUTO) 12.3 % (1.7-9.3); NEUTROPHILS # (AUTO) 2.3 K/uL (1.8-7.7); NEUTROPHILS % (AUTO) 52.2 % (40.0-70.0); PLATELET COUNT (AUTO) 146 K/uL (130-430); RED BLOOD CELL COUNT(AUTO) 3.44 MIL/uL (4.2-6.2); RED CELL DISTRIBUTION WIDTH 13.5 % (9.0-15.0); WHITE BLOOD COUNT (AUTO) 4.4 K/uL (4.8-10.8)
[2018-04-12 06:51] LABS: CALCIUM 7.4 mg/dL (8.4-11.0); CREATININE 0.54 mg/dL (0.55-1.30); POTASSIUM 3.9 mmol/L (3.5-5.1)
--- NOTE | 2018-04-12 06:55 | NUR ---
CLOSING NOTES Patient resting in bed at this time. No s/s of acute distress noted. Patient denies any pain at this time. Breathing is even and unlabored, nasal canula attached, on 2L of oxygen. IVF infusing well, IV site shows no signs of infection or infiltration. SCDs attached and operating. All of patient's needs met throughout shift. Fall and safety precautions maintained throughout shift. Will continue to monitor until patient care is endorsed to oncoming dayshift nurse.
[2018-04-12 07:06] LABS: ALBUMIN 2.2 g/dL (3.4-4.8); TOTAL BILIRUBIN 0.3 mg/dL (0.0-1.0)
[2018-04-12 08:10] VITALS: BP_SYST 100
--- NOTE | 2018-04-12 08:10 | NUR ---
OPENING NOTE Received report and initiated care. Patient is AOx4, awake and sitting up for breakfast. Dressing is dry and intact. She has a medial TENISHA in place no drainage at this time. She c/o nose stuffiness and bleeding and I provided humidifier. Discussed plan of care. Bed is low and call light w/in reach.
[2018-04-12] MEDS: PANTOPRAZOLE SODIUM 40 MG/VIAL (PROTONIX) IVP SCH ×2 (10:03→21:37)
--- NOTE | 2018-04-12 10:05 | NUR ---
ROUNDS Patient is sitting up on chair at bedside. She reports abdominal discomfort. Will encourage her to walk.
--- NOTE | 2018-04-12 10:15 | NUR ---
OXYGEN REMOVED Pt sitting up in bedside chair without oxygen with no c/o SOB, SaO2 97%. Dr. Castano saw pt earlier and requested we check how pt tolerated breathing without oxygen, pt off oxygen about 30 minutes, tolerating well.
[2018-04-12 12:00] VITALS: BP_SYST 99
[2018-04-12] MEDS ORDERED: BISACODYL 10 MG/SUPPOSITORY RC PRN (12:45)
[2018-04-12] MEDS ORDERED: MILK OF MAGNESIA 30 ML UDC PO PRN (12:45)
[2018-04-12] MEDS ORDERED: MAG-AL HYDROX/SIMETH 30 ML UDC PO PRN (12:45)
--- NOTE | 2018-04-12 13:30 | NUR ---
ROUNDS Patient ambulated to restroom; voided and passed gas. She also ambulated in the hallway; she walked to laps. I assisted her back in bed, SCD's in place, bed low and call light w/in reach.
[2018-04-12] MEDS: guaiFENesin/DEXTROMETHORPHAN 10 ML UDC PO PRN (14:26)
[2018-04-12] MEDS: PSYLLIUM HUSK 1 PKT PACKET PO SCH ×2 (15:00→21:36)
--- NOTE | 2018-04-12 16:06 | NUR ---
Nutrition F/U Admitting Diagnosis Acute abdomen Reviewed Pertinent Medical/Surgical Hx Medical Record Patient Daughter Medical History Comment: Pt found w/: adb pain, ventral hernia, possible small bowel strangulation, asthma, HTN, bradycardia, H/O diverticulitis, appendectomy, S/P cholecystectomy, S/P section per MD notes. Subjective Information Pt seen resting in bed while eating lunch at time of RD visit. Pt reported N/V today after consumption of milk. Per MD orders, plans for advance diet as tolerated. RD encouraged pt to try to drink Ensure supplement drink, and to eat foods slowly. Pt is POD 3 s/p hernia, ventral repair w/ biological mesh. Pt is not meeting optimal nutritional needs. Current Diet Order/Nutrition Support Full liquid x0 days Patient/Significant Other Able To Verbalize Education Provided Not Indicated Pertinent Medications mylanta, protonix IV Pertinent Labs BUN 3 L, H/H 10.6 L/31.8 L, WBC 4.4 L, RBC 3.44 L, Ca 7.4 L, ALP 46 WNL (improved) Height (Feet) 5 feet Height (Inches) 4.00 inches Weight (Pounds) 213 pounds (04/09/18) Weight (Calculated Kilograms) 96.692833 kilograms Patient Weight 96.615 kg Body Mass Index 36.56 kg/m2 %IBW 178 [place]/Adjusted Body Weight 120 lb, 55 kg; Adj IBW Obesity: 143 lb, 65 kg Recent Weight Change No - per pt Weight Status Obese Gastrointestinal Symptoms Nausea/Vomiting Last BM Apr 06, 2018 Food Allergies No - per pt Usual Diet At Home regular diet, home cooked meals per pt Skin Integrity Comment: Corey scale: 15; per nursing notes, anterior abd w/ surgical incisions Current % PO Poor -- 20% average x5 meals Estimated Energy Expenditure (kcals/day) 8110-6098 kcal/day (25-30 kcal/kg Adj IWB for maintenance) Estimated Protein Required (g/day) 78-98 gm/day (1.2-1.5 gm/kg Adj IBW for surgery) Estimated Fluid Required (l/day) 1.6-2 L/day (1 ml/kcal/day for maintenance) Problem/Etiology/Signs/Symptoms Inadequate nutritional intake related to GI dysfunction as evidenced by nausea, abd pain, bloatedness and poor oral intake. *ongoing Expected Outcomes/Goals Monitor advancement of diet, pt appetite and PO intake w/ goal of pt meeting at least 75% of estimated nutritional needs, labs trending WNL, normal GI function, skin integrity/wt maintenance. Dietitian Recommendations * Recommend continuing full liquid diet per MD * Consider advance diet when medically appropriate (soft (low fiber/bland) diet) Follow Up High Risk: F/U in 2-3 days
--- NOTE | 2018-04-12 16:13 | NUR ---
Dietitian Recommendations * Recommend continuing full liquid diet per MD * Consider advance diet when medically appropriate (soft (low fiber/bland) diet) LP, RD Please refer to Nutrition F/U for details.
--- NOTE | 2018-04-12 16:15 | NUR ---
PAIN Patient reports pain to abdomen is 6/10, she has been coughing and this aggravates it. She was given Toradol 30mg IVP as ordered. Will continue to monitor.
[2018-04-12 16:51] VITALS: BP_SYST 120
--- NOTE | 2018-04-12 17:00 | NUR ---
ROUNDS Patient is resting, eyes are closed. There is symmetrical rise and fall of chest. No distress noted.
[2018-04-12 17:46] VITALS: BP_SYST 120
--- NOTE | 2018-04-12 18:57 | NUR ---
CLOSING NOTE Patient's IV became clogged, it didn't flush. A new IV was not inserted after two attempts. Patient was cooperative and tolerated procedure. She ambulated to the restroom and did not complain of pain. Will endorse care to film processing shift supervisor.
--- NOTE | 2018-04-12 19:05 | NUR ---
OPENING NOTES Late entry due to patient care. Bedside report received from dayshift nurse. Patient received AOx4, lying in bed, HOB raised, patient denies any pain at this time. No s/s of acute distress noted. Breathing even and unlabored. IVF not running at this time because previous IV site was infiltrated. Patient made aware that RN will attempt to start another IV later. SCDs attached, operating. Abdominal dressing intact, clean and dry, no signs of drainage or active bleeding noted. TENISHA drainage intact. Call light with patient, instructed to call for any assistance, patient verbalized understanding. Bed alarm on. Bed is locked and at lowest position. Will continue to monitor.
[2018-04-12 20:00] VITALS: BP_SYST 118
--- NOTE | 2018-04-12 20:10 | NUR ---
NEW IV SITE New IV site initiated at left AC, 22 gauge, on first attempt. Patient tolerated procedure well. No complaints of pain. IVF infusing well. IV site shows no signs of infiltration or infection at this time. Will continue to monitor.
[2018-04-12] MEDS ORDERED: DOCUSATE SODIUM 100 MG CAPSULE PO SCH (21:00)
[2018-04-12] MEDS ORDERED: KETOROLAC TROMETHAMINE 30 MG VIAL IVP PRN (21:30)
[2018-04-12] MEDS: P-EPHED SUL/LORATADINE 1 TAB.SR TAB.SR.12H PO SCH (21:37)
--- NOTE | 2018-04-12 22:00 | NUR ---
ROUNDS Patient in bed sleeping at this time. No signs of discomfort noted. Chest rise and fall even bilaterally. IVF infusing well. SCDs attached and operating. Call light with patient. Bed alarm on. Will continue to monitor.
[2018-04-13] VITALS: BP_SYST 118
--- NOTE | 2018-04-13 | NUR ---
ROUNDS Patient sleeping comfortably at this time. No s/s of acute distress. No SOB. Chest rise and fall even bilaterally. IVF infusing well. Call light with patient. Bed alarm on. Will continue to monitor.
[2018-04-13] MEDS: D5/0.45 NS 1,000 ML IV SCH ×2 (01:30→04:33)
--- NOTE | 2018-04-13 02:00 | NUR ---
ROUNDS Patient sleeping at this time. No signs of discomfort noted. Chest rise and fall even bilaterally. Call light with patient. Bed alarm on. Will continue to monitor.
--- NOTE | 2018-04-13 04:00 | NUR ---
ROUNDS Patient in bed watching TV at time. Patient states that she feels ok, no signs of discomfort noted. Chest rise and fall even bilaterally. Call light with patient. Bed alarm on. Will continue to monitor.
--- NOTE | 2018-04-13 04:45 | NUR ---
PAIN Patient complained of 6/10 abdominal pain. Toradol administered per PRN order. Will continue to monitor and reassess.
[2018-04-13 06:32] LABS: BASOPHILS % (AUTO) 1.1 % (0.0-2.0); EOSINOPHILS # (AUTO) 0.2 K/uL (0.0-0.4); EOSINOPHILS % (AUTO) 3.8 % (0.0-4.0); HEMATOCRIT 33.1 % (36-48); HEMOGLOBIN 11.1 g/dL (12.0-16.0); LYMPHOCYTES # (AUTO) 1.6 K/uL (1.0-5.5); LYMPHOCYTES % (AUTO) 38.2 % (20.5-51.5); MEAN CORPUSCULAR HEMOGLOBIN 31 pg (27-31); MEAN CORPUSCULAR HGB CONC 33 % (32-36); MEAN CORPUSCULAR VOLUME 94 fL (79.0-98.0); MONOCYTES # (AUTO) 0.5 K/uL (0.0-1.0); MONOCYTES % (AUTO) 11.8 % (1.7-9.3); NEUTROPHILS % (AUTO) 45.1 % (40.0-70.0); PLATELET COUNT (AUTO) 166 K/uL (130-430); RED BLOOD CELL COUNT(AUTO) 3.53 MIL/uL (4.2-6.2); RED CELL DISTRIBUTION WIDTH 13.5 % (9.0-15.0); WHITE BLOOD COUNT (AUTO) 4.3 K/uL (4.8-10.8)
--- NOTE | 2018-04-13 06:34 | NUR ---
CLOSING NOTES Patient in bed resting at this time, eyes closed, appears to be asleep. No s/s of acute distress. Breathing is even and unlabored. IVF infusing well, IV site shows no signs of infection or infiltration. SCDs attached and operating. HOB raised. All of patient's needs met throughout shift. Fall and safety precautions maintained throughout shift. Will continue to monitor until patient care is endorsed to oncoming dayshift nurse.
[2018-04-13 06:47] LABS: CALCIUM 8.5 mg/dL (8.4-11.0); CREATININE 0.63 mg/dL (0.55-1.30); POTASSIUM 3.8 mmol/L (3.5-5.1)
[2018-04-13 06:59] LABS: ALBUMIN 2.5 g/dL (3.4-4.8); TOTAL BILIRUBIN 0.3 mg/dL (0.0-1.0)
[2018-04-13 07:50] VITALS: BP_SYST 115
--- NOTE | 2018-04-13 08:10 | NUR ---
OPENING NOTES, RECEIVED PT IN BED, PT IS AAOX4, DENIES PAIN , NO SOB, NO RESP DISTRESS. PT IS AFEBRILE, O2 SAT ON ROOM AIR IS 96%. IV ACCESS ON L. AC @22 INTACT AND PATENT, IV FLUIDS INFUSING WELL WITH NO SWELLING OR SIGNS OF INFILTRATION. ABDOMINAL DRESSING INTACT , CLEAN AND DRY WITH NO DRAINAGE. JPX1 NOTED WITH REDDISH DRAINAGE (APPROX < 5CC). SAFETY PRECAUTION IN PLACE. CALL LIGHT IN REACH. BED IN LOW POSITION. PT ENCOURAGED TO CALL FOR ASSIST AND PAIN MEDS AND ANY OTHER CONCERNS. WILL CONT TO MONITOR.
[2018-04-13] MEDS: P-EPHED SUL/LORATADINE 1 TAB.SR TAB.SR.12H PO SCH (08:45)
[2018-04-13] MEDS: PSYLLIUM HUSK 1 PKT PACKET PO SCH (08:45)
[2018-04-13] MEDS: PANTOPRAZOLE SODIUM 40 MG/VIAL (PROTONIX) IVP SCH (08:45)
--- NOTE | 2018-04-13 09:42 | NUR ---
DR ENRIQUEZ HERE AND SEEN PT, CHANGED DRESSING AND REMOVE TENISHA DRAIN. NO DRAINAGE NOTED. PT TOLERATED WELL. MD SAID PT IS OKAY TO DISCHARGE AND PT HAS TO SEE PT IN 1 WEEK AND LIGHT ACTIVITY, SPONGE BATH ONLY AND NO NEED TO CHANGE DRESSING. PT ENCOURAGED TO SEE MD EARLIER OR CALL IF PT DEVELOP FEVER, INCREASED PAIN , SWEELLING AND BLOODY OR PURULENT DISCHARGE IS NOTED , PT VERBALIZED UNDERSTANDING.
[2018-04-13] MEDS: guaiFENesin/DEXTROMETHORPHAN 10 ML UDC PO PRN (11:12)
--- NOTE | 2018-04-13 12:00 | NUR ---
pt in bed, denies pain. no sob, no distress. waiting for family to come for discharge.
[2018-04-13 12:25] VITALS: BP_SYST 115
[2018-04-13] MEDS ORDERED: ACET-2634 PO (13:49)
[2018-04-13] MEDS ORDERED: HYDR-4272 PO (13:52)
--- NOTE | 2018-04-13 16:00 | NUR ---
pt in chair, resting, no c/o pain. no sob, no distress. encouraged to call for assist and pain med or any concerns. will cont to monitor.
[2018-04-13 16:45] VITALS: BP_SYST 151
[2018-04-13 18:01] VITALS: BP_SYST 151
--- NOTE | 2018-04-13 18:30 | NUR ---
D/C Patient Patient given medication reconciliation form and D/C instructions. Exit Care provided. Patient verbalized understanding. MD discussed with patient the results and treatment provided. Ambulatory with steady gait for discharge to home. Patient in stable condition, ID band removed. IV catheter removed, intact and dressing applied, no active bleeding. Rx of TYLENOL ES AND NORCO given. Patient educated on pain management and follow up care with PMD and Surgeon ( DR Castano ). All belongings sent with patient.
== END 2018-04-13 18:25 | disposition home or self-care (01) | DRG 227 ==
LOC: SED 11:53 → STU 15:24
PROVIDERS: ADMIT Preventive Medicine Preventive Medicine/Occupational Environmental Medicine; ATTEND Preventive Medicine Preventive Medicine/Occupational Environmental Medicine
PROC: 0WUF0JZ Supplement Abdominal Wall with Synthetic Substitute, Open Approach (ICD-10-PCS; 2018-04-09)
PROC: 0DNW0ZZ Release Peritoneum, Open Approach (ICD-10-PCS; principal; 2018-04-09 13:00)
DX: K43.6 Other and unspecified ventral hernia with obstruction, without gangrene (principal); E43 Unspecified severe protein-calorie malnutrition; K56.2 Volvulus; K57.92 Diverticulitis of intestine, part unspecified, without perforation or abscess without bleeding; E83.51 Hypocalcemia; J45.909 Unspecified asthma, uncomplicated; I10 Essential (primary) hypertension; D64.9 Anemia, unspecified; E66.9 Obesity, unspecified; K66.0 Peritoneal adhesions (postprocedural) (postinfection); K21.9 Gastro-esophageal reflux disease without esophagitis; E78.00 Pure hypercholesterolemia, unspecified; D72.819 Decreased white blood cell count, unspecified; R00.1 Bradycardia, unspecified; R73.9 Hyperglycemia, unspecified; Z68.36 Body mass index [BMI] 36.0-36.9, adult; Z90.49 Acquired absence of other specified parts of digestive tract; Z82.49 Family history of ischemic heart disease and other diseases of the circulatory system; Z83.3 Family history of diabetes mellitus; Z88.5 Allergy status to narcotic agent; Z88.0 Allergy status to penicillin; Z88.2 Allergy status to sulfonamides; Z79.899 Other long term (current) drug therapy; Z79.52 Long term (current) use of systemic steroids
CPT/HCPCS: 36415; 71045; 74018; 74250-TC; 80048; 80053; 81000-TC; 83605; 83690-TC; 85025; 85610-TC; 87040-TC; 87081; 87086; 88302; 93005; 93306; 94010; 94760; 96374; 96375; 97110-GP; 97116-GP; 97530-GP; 99285; C9113; C9290; J1170; J1200; J1885; J2250; J2405; J2704; J2710; J3010; J3490; J7120; Q4130; Q9963

== ENCOUNTER 2018-05-08 10:33 | Inpatient (IN) | payer MEDICAID ==
[~2018-05-08] VITALS: Ht 162.6 cm; Wt 94.3 kg
[2018-05-08] VITALS (11 sets, daily range): BP systolic 98–148
[~2018-05-08 10:33] MED LIST changes: +ACET-2634 PO; -DEXL60CA4 PO; +HCT25 PO; +HYDR-4272 PO; +LISI-600 PO; -LISI40TA4 PO; +PRED10TA PO; -TRAM50TA92 PO
[2018-05-08 11:16] LABS: BILIRUBIN,URINE NEGATIVE (NEGATIVE); BLOOD, URINE NEGATIVE (NEGATIVE); CLARITY/URINE SL HAZY (CLEAR); COLOR,URINE YELLOW (YELLOW); GLUCOSE,URINE NEGATIVE (NEGATIVE); KETONES,URINE NEGATIVE (NEGATIVE); LEUKOCYTE ESTERASE ,URINE NEGATIVE (NEGATIVE); NITRITE, URINE NEGATIVE (NEGATIVE); PROTEIN URINE NEGATIVE (NEGATIVE); UROBILINOGEN,URINE 0.2 (0.2-1.0)
[2018-05-08 11:40] LABS: HEMATOCRIT 37.6 % (36-48); HEMOGLOBIN 12.5 g/dL (12.0-16.0); MEAN CORPUSCULAR HEMOGLOBIN 30 pg (27-31); MEAN CORPUSCULAR HGB CONC 33 % (32-36); MEAN CORPUSCULAR VOLUME 90 fL (79.0-98.0); PLATELET COUNT (AUTO) 223 K/uL (130-430); RED BLOOD CELL COUNT(AUTO) 4.17 MIL/uL (4.2-6.2); RED CELL DISTRIBUTION WIDTH 13.6 % (9.0-15.0); WHITE BLOOD COUNT (AUTO) 5.5 K/uL (4.8-10.8)
[2018-05-08 11:48] LABS: CALCIUM 9.6 mg/dL (8.4-11.0); CREATININE 0.74 mg/dL (0.55-1.30); POTASSIUM 3.6 mmol/L (3.5-5.1)
[2018-05-08 11:53] LABS: ALBUMIN 3.3 g/dL (3.4-4.8); TOTAL BILIRUBIN 0.3 mg/dL (0.0-1.0)
[2018-05-08 11:55] LABS: BAND % (MANUAL) 3 % (0-6); BASOPHILS % (MANUAL) 0 % (0-2); EOSINOPHILS % (MANUAL) 15 % (0-7); LYMPHOCYTES % (MANUAL) 32 % (20-46); MONOCYTES % (MANUAL) 7 % (0-11)
[2018-05-08] MEDS ORDERED: NACL 0.9% 1,000 ML IV ONE (12:30)
[2018-05-08] MEDS ORDERED: KETOROLAC TROMETHAMINE 30 MG VIAL IVP ONE (12:30)
[2018-05-08] MEDS ORDERED: IOHEXOL 100 ML IV ONE (13:30)
[2018-05-08] MEDS ORDERED: ALBU2TAB4 PO (14:41)
[2018-05-08] MEDS ORDERED: MOME13HF2 INH (14:41)
[2018-05-08] MEDS ORDERED: ALBMDI INH (14:41)
[2018-05-08] MEDS ORDERED: LR 1,000 ML IV SCH (16:58)
[2018-05-08] MEDS ORDERED: MEPERIDINE HCL/PF 25 MG/ML DISP.SYRIN IVP PRN (17:00)
[2018-05-08] MEDS ORDERED: MEPERIDINE HCL/PF 50 MG/ML AMP IVP PRN ×2 (17:00)
[2018-05-08] MEDS ORDERED: METOCLOPRAMIDE HCL 10 MG/2 ML VIAL IVP PRN (17:00)
[2018-05-08] MEDS ORDERED: GLYCOPYRROLATE 0.2 MG/ML VIAL ONE (17:20)
[2018-05-08] MEDS ORDERED: ONDANSETRON HCL 4 MG/2 ML VIAL ONE ×2 (17:20→18:21)
[2018-05-08] MEDS ORDERED: PROPOFOL 200MG/ 20ML VIAL (DIPRIVAN) IV ONE (17:20)
[2018-05-08] MEDS ORDERED: fentaNYL CITRATE/PF 100 MCG/2 ML AMP ONE (17:20)
[2018-05-08] MEDS ORDERED: SEVOFLURANE 15 MIN GAS INH ONE (17:20)
[2018-05-08] MEDS ORDERED: NEOSTIGMINE METHYLSULFATE 1 MG/ML, 10 ML VIAL ONE (17:20)
[2018-05-08] MEDS ORDERED: NS IRRIG SOLN 1000 ML IR ONE (17:20)
[2018-05-08] MEDS ORDERED: LR 1,000 ML IV.SOLN IV ONE (17:20)
[2018-05-08] MEDS ORDERED: PHENYLEPHRINE HCL 10 MG/ML VIAL (NEOSYNEPHRINE) ONE (17:20)
[2018-05-08] MEDS ORDERED: LEVOFLOXACIN 750 mg/D5W 150 mL IVPB IV ONE (17:20)
[2018-05-08] MEDS ORDERED: ROCURONIUM BROMIDE 10 MG/ML (ZEMURON) ONE (17:20)
[2018-05-08] MEDS ORDERED: MIDAZOLAM HCL 5 MG/ML VIAL (VERSED) IV ONE (17:20)
[2018-05-08] MEDS ORDERED: ENALAPRILAT DIHYDRATE 1.25 MG/ML VIAL IVP PRN (17:30)
[2018-05-08] MEDS ORDERED: ACETAMINOPHEN 650 MG SUPP.RECT RC PRN (17:30)
[2018-05-08] MEDS ORDERED: PANTOPRAZOLE SODIUM 40 MG/VIAL (PROTONIX) IVP ONE (17:30)
[2018-05-08] MEDS ORDERED: MEPERIDINE HCL/PF 50 MG/ML AMP ONE (18:28)
[2018-05-08] MEDS ORDERED: PROMETHAZINE HCL 25 MG/ML AMP IM ONE (18:45)
[2018-05-08] MEDS ORDERED: PROMETHAZINE HCL 25 MG/ML AMP ONE (18:46)
[2018-05-08] MEDS ORDERED: ACETAMINOPHEN 325 MG TABLET PO PRN (21:00)
[2018-05-08] MEDS ORDERED: ZOLPIDEM TARTRATE 5 MG TABLET PO PRN (21:00)
[2018-05-08] MEDS ORDERED: ONDANSETRON HCL 4 MG/2 ML VIAL IVP PRN (21:00)
[2018-05-08] MEDS: IPRATROPIUM/ALBUTEROL SULFATE 3 ML AMPUL.NEB (DUONEB) INH SCH (22:58)
[2018-05-09 07:26] LABS: BASOPHILS % (AUTO) 0.5 % (0.0-2.0); EOSINOPHILS # (AUTO) 0.4 K/uL (0.0-0.4); EOSINOPHILS % (AUTO) 9.6 % (0.0-4.0); HEMATOCRIT 31.3 % (36-48); HEMOGLOBIN 10.4 g/dL (12.0-16.0); LYMPHOCYTES # (AUTO) 1.4 K/uL (1.0-5.5); LYMPHOCYTES % (AUTO) 31.1 % (20.5-51.5); MEAN CORPUSCULAR HEMOGLOBIN 30 pg (27-31); MEAN CORPUSCULAR HGB CONC 33 % (32-36); MEAN CORPUSCULAR VOLUME 91 fL (79.0-98.0); MONOCYTES # (AUTO) 0.4 K/uL (0.0-1.0); MONOCYTES % (AUTO) 9.2 % (1.7-9.3); NEUTROPHILS # (AUTO) 2.5 K/uL (1.8-7.7); NEUTROPHILS % (AUTO) 49.6 % (40.0-70.0); PLATELET COUNT (AUTO) 167 K/uL (130-430); RED BLOOD CELL COUNT(AUTO) 3.43 MIL/uL (4.2-6.2); RED CELL DISTRIBUTION WIDTH 13.4 % (9.0-15.0); WHITE BLOOD COUNT (AUTO) 4.7 K/uL (4.8-10.8)
[2018-05-09] MEDS: IPRATROPIUM/ALBUTEROL SULFATE 3 ML AMPUL.NEB (DUONEB) INH SCH ×3 (07:37→23:02)
[2018-05-09 07:42] VITALS: BP_SYST 95
[2018-05-09 07:48] LABS: ALBUMIN 2.4 g/dL (3.4-4.8); CALCIUM 8.5 mg/dL (8.4-11.0); CREATININE 0.61 mg/dL (0.55-1.30); POTASSIUM 3.6 mmol/L (3.5-5.1); TOTAL BILIRUBIN 0.3 mg/dL (0.0-1.0)
[2018-05-09] MEDS: PANTOPRAZOLE SODIUM 40 MG/VIAL (PROTONIX) IVP SCH (08:16)
[2018-05-09 10:51] VITALS: BP_SYST 101
[2018-05-09 14:51] VITALS: BP_SYST 98
[2018-05-09] MEDS ORDERED: IBUPROFEN 400 MG TABLET PO PRN (16:15)
[2018-05-09] MEDS ORDERED: HYDROcodone/ACETAMIN 5-325 MG TAB (NORCO/ VICODIN) PO PRN (16:30)
[2018-05-09 20:00] VITALS: BP_SYST 106
[2018-05-10 00:12] VITALS: BP_SYST 106
[2018-05-10 06:26] LABS: BASOPHILS # (AUTO) 0.1 K/uL (0.0-0.2); EOSINOPHILS # (AUTO) 0.8 K/uL (0.0-0.4); EOSINOPHILS % (AUTO) 14.1 % (0.0-4.0); HEMATOCRIT 32.7 % (36-48); HEMOGLOBIN 10.5 g/dL (12.0-16.0); LYMPHOCYTES # (AUTO) 1.7 K/uL (1.0-5.5); LYMPHOCYTES % (AUTO) 30.9 % (20.5-51.5); MEAN CORPUSCULAR HEMOGLOBIN 30 pg (27-31); MEAN CORPUSCULAR HGB CONC 32 % (32-36); MEAN CORPUSCULAR VOLUME 93 fL (79.0-98.0); MONOCYTES # (AUTO) 0.5 K/uL (0.0-1.0); NEUTROPHILS # (AUTO) 2.4 K/uL (1.8-7.7); PLATELET COUNT (AUTO) 185 K/uL (130-430); RED BLOOD CELL COUNT(AUTO) 3.52 MIL/uL (4.2-6.2); RED CELL DISTRIBUTION WIDTH 14.2 % (9.0-15.0); WHITE BLOOD COUNT (AUTO) 5.5 K/uL (4.8-10.8)
[2018-05-10 06:56] LABS: ALBUMIN 2.3 g/dL (3.4-4.8); CALCIUM 8.6 mg/dL (8.4-11.0); CREATININE 0.7 mg/dL (0.55-1.30); POTASSIUM 3.9 mmol/L (3.5-5.1); TOTAL BILIRUBIN 0.3 mg/dL (0.0-1.0)
[2018-05-10] MEDS: IPRATROPIUM/ALBUTEROL SULFATE 3 ML AMPUL.NEB (DUONEB) INH SCH (07:35)
[2018-05-10 08:01] VITALS: BP_SYST 111
[2018-05-10] MEDS: PANTOPRAZOLE SODIUM 40 MG/VIAL (PROTONIX) IVP SCH (08:27)
[2018-05-10 11:16] VITALS: BP_SYST 123
[2018-05-10 12:07] VITALS: BP_SYST 123
[2018-05-10 13:26] VITALS: BP_SYST 123
== END 2018-05-10 14:30 | disposition home or self-care (01) | DRG 793 ==
LOC: SED 10:33 → SMU 14:44
PROVIDERS: ADMIT Internal Medicine; ATTEND Internal Medicine
PROC: 0J980ZZ Drainage of Abdomen Subcutaneous Tissue and Fascia, Open Approach (ICD-10-PCS; principal; 2018-05-08 15:00)
DX: L76.34 Postprocedural seroma of skin and subcutaneous tissue following other procedure (principal); E43 Unspecified severe protein-calorie malnutrition; E66.9 Obesity, unspecified; I10 Essential (primary) hypertension; Y83.8 Other surgical procedures as the cause of abnormal reaction of the patient, or of later complication, without mention of misadventure at the time of the procedure; J45.909 Unspecified asthma, uncomplicated; M19.90 Unspecified osteoarthritis, unspecified site; Z88.0 Allergy status to penicillin; Z88.2 Allergy status to sulfonamides; Z88.5 Allergy status to narcotic agent; Z88.8 Allergy status to other drugs, medicaments and biological substances; Z79.899 Other long term (current) drug therapy; Z90.49 Acquired absence of other specified parts of digestive tract; Z98.891 History of uterine scar from previous surgery; Z87.11 Personal history of peptic ulcer disease; Y92.89 Other specified places as the place of occurrence of the external cause; Z68.35 Body mass index [BMI] 35.0-35.9, adult
CPT/HCPCS: 36415; 71045; 73502; 80053; 81003; 83690-TC; 85007; 85025; 85027; 87070; 87070-TC; 87075-TC; 87081; 93005; 94640; 94760; 96361; 96374; 99285; C9113; J1885; J1956; J2175; J2250; J2370; J2405; J2550; J2704; J2710; J3010; J3490; J7030; J7042; J7120; J7620; Q9967